=== PATIENT | male | born 1960 | race African-American/Black ===

== ENCOUNTER 2020-03-09 05:24 | Inpatient (IN) | payer MEDICARE, MEDICAID ==
[~2020-03-09] VITALS: Ht 175.3 cm; Wt 68.0 kg
[2020-03-09] MEDS ORDERED: LABETALOL 5MG/ML SYR 20 MG/4 ML SYRINGE IV ONE (06:00)
[2020-03-09] MEDS ORDERED: NITROGLYCERIN OINT 1GM/INCH UDPKT TD ONE (06:00)
[2020-03-09 08:20] LABS: BASOPHILS % 1.6 % (0.0-2.0); EOSINOPHILS % 6.2 % (0.0-5.0); HEMATOCRIT. 32.5 % (42.0-52.0); HEMOGLOBIN. 10.4 g/dL (14.0-18.0); LYMPHOCYTES % 20.7 % (20.0-50.0); MEAN CORPUSCULAR HEMOGLOBIN 26.8 pg (28.0-32.0); MEAN CORPUSCULAR VOLUME 83.9 fL (80.0-94.0); MEAN PLATELET VOLUME 9.1 fl (7.4-10.4); MONOCYTES % 9.7 % (2.0-8.0); NEUTROPHILS % 61.8 % (40.0-76.0); PLATELET 117 x1000/uL (130-400); RED BLOOD CELL COUNT 3.88 mill/uL (4.7-6.1); RED CELL DISTRIBUTION WIDTH 16.3 % (11.6-14.6)
[2020-03-09 08:26] LABS: CHLORIDE 105 mEq/L (98-107)
[2020-03-09] MEDS ORDERED: ONDANSETRON HCL 4MG/2ML INJ IV PRN (08:45)
[2020-03-09] MEDS ORDERED: ACETAMINOPHEN 325MG TABLET PO PRN (08:45)
[2020-03-09] MEDS: HYDRALAZINE HCL 100MG TABLET PO SCH ×2 (09:00→22:43)
[2020-03-09] MEDS: NIFEDIPINE XL 60MG TAB PO SCH (09:00)
[2020-03-09 13:45] VITALS: BP 196/103
[2020-03-09 16:00] VITALS: BP 197/107
[2020-03-09] MEDS ORDERED: CARV6.2548 PO (18:06)
[2020-03-09] MEDS ORDERED: PRED5TAB PO (18:06)
[2020-03-09] MEDS ORDERED: HYDR-4135 PO (18:06)
[2020-03-09] MEDS ORDERED: METO100T16 PO (18:06)
[2020-03-09] MEDS ORDERED: WARF-53 PO (18:06)
[2020-03-09] MEDS ORDERED: LISI40TA4 PO (18:06)
[2020-03-09] MEDS ORDERED: MYCO500T PO (18:06)
[2020-03-09] MEDS ORDERED: ISOS30TA12 PO (18:06)
[2020-03-09] MEDS ORDERED: OMEP20TA2 PO (18:06)
[2020-03-09 20:33] VITALS: BP 128/81
[2020-03-09 22:28] VITALS: BP 124/88
[2020-03-09 22:37] VITALS: BP 124/88
[2020-03-10 04:00] VITALS: BP 145/81
[2020-03-10 08:00] VITALS: BP_SYST 119; BP_SYST 129; BP_DIAS 71; BP_DIAS 76
[2020-03-10] MEDS: NIFEDIPINE XL 60MG TAB PO SCH (08:39)
[2020-03-10] MEDS: HYDRALAZINE HCL 100MG TABLET PO SCH (08:40)
[2020-03-10 11:33] VITALS: BP 129/71
[2020-03-10 12:00] VITALS: BP 112/79
== END 2020-03-10 16:50 | disposition home or self-care (01) | DRG 291 ==
LOC: ER 05:24 → 7EST 06:09 → ENRESERV 07:32 → CANRESERV 07:32 → ENRESERV 12:44 → 5WST 22:26
PROVIDERS: ADMIT Internal Medicine; ATTEND Internal Medicine
DX: I13.2 Hypertensive heart and chronic kidney disease with heart failure and with stage 5 chronic kidney disease, or end stage renal disease (principal); I50.31 Acute diastolic (congestive) heart failure; J96.01 Acute respiratory failure with hypoxia; N18.6 End stage renal disease; I16.1 Hypertensive emergency; D63.8 Anemia in other chronic diseases classified elsewhere; D69.6 Thrombocytopenia, unspecified; Z20.828 Contact with and (suspected) exposure to other viral communicable diseases; E87.5 Hyperkalemia; Z99.2 Dependence on renal dialysis; Z79.899 Other long term (current) drug therapy
CPT/HCPCS: 36415; 71045; 80048; 80053; 83880; 84484; 85025; 99291; U0003